=== PATIENT | male | born 1995 | race Caucasian/White ===

== ENCOUNTER 2022-12-23 16:00 | Emergency (ER) | payer SELFPAY ==
[2022-12-23 16:11] VITALS: BP 178/110; PULSE 82; RESP 17; TEMP 36.8; O2SAT 99; BMI 45.8
--- NOTE | 2022-12-23 16:11 | XRR_ITS ---
PROCEDURE INFORMATION: Exam: XR Chest Exam date and time: 12/23/2022 4:24 PM Age: 27 years old Clinical indication: Cough and dyspnea; Additional info: Dyspnea/cough TECHNIQUE: Imaging protocol: Radiologic exam of the chest. Views: 1 view. COMPARISON: CT abdomen pelvis w con* [id number] 02/05/2018 7:15 AM FINDINGS: Lungs: Unremarkable for portable technique. No consolidation. Pleural spaces: Unremarkable. No pleural effusion. No pneumothorax. Heart/Mediastinum: Unremarkable. No cardiomegaly. Bones/joints: Unremarkable for age. XR/XR chest 1V portable [id number] IMPRESSION: Negative portable chest.
--- NOTE | 2022-12-23 16:18 | ECG_ITS ---
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 Measurements Intervals [place] Rate: 76 P: 21 CO: 132 QRS: 5 QRSD: 97 T: 16 QT: 393 QTc: 444 Interpretive Statements SINUS RHYTHM LOW QRS VOLTAGE IN PRECORDIAL LEADS [QRS DEFLECTION < 1.0 mV IN CHEST LEADS] POSSIBLE RIGHT VENTRICULAR CONDUCTION DELAY [RSR (QR) IN V1/V2] No previous ECG available for comparison Electronically Signed On 12-23-2022 19:25:09 CDT by Jarad Siddiqui M.D. [id number]
[2022-12-23] MEDS: lidocaine 2% viscous 15 ML, aluminum-mag hydrox-simethicon 30 ML, sucralfate oral liq 1 GM PO (16:31)
[2022-12-23] MEDS: ondansetron 2 mg/ML SDV 2 mL 4 MG IVP (16:31)
[2022-12-23] MEDS: sodium chloride 0.9% 1,000 ML 999 ML IV (16:32)
[2022-12-23 16:34] LABS: Basophils # 0.1 10^3/uL (0.0-0.1); Basophils % 0.8 %; Eosinophils # 0.1 10^3/uL (0.0-0.8); Eosinophils % 0.6 %; Hematocrit 45.9 % (42.0-52.0); Hemoglobin 15.5 g/dL (11.7-16.6); Lymphocytes # 1.4 10^3/uL (0.8-4.8); Lymphocytes % 17.3 %; Mean Corpuscular HGB Conc 33.8 g/dL (30.0-36.0); Mean Corpuscular Hemoglobin 29.8 pg (28.0-34.0); Mean Corpuscular Volume 88.3 fl (80-94); Mean Platelet Volume 10.5 fL (7.4-10.4); Monocytes # 0.6 10^3/uL (0.2-0.9); Monocytes % 7.1 %; Neutrophils # 5.77 10^3/uL (1.8-7.7); Neutrophils % 73.7 %; Nucleated Red Blood Cells % 0 %; Platelet Count 230 10^3/cmm (130-400); Red Cell Distribution Width 13.9 % (12.1-15.1); White Blood Count 7.8 10^3/uL (4.0-10.0)
[2022-12-23 16:36] VITALS: BP 157/110; PULSE 85; O2SAT 98
--- NOTE | 2022-12-23 16:40 | W.ED.CHESTPA ---
HPI - Chest Pain General: Chief Complaint: Chest Pain Stated Complaint: tingling hands, chest pains Time Seen by Provider: 12/23/22 16:11 Source: patient Mode of arrival: ambulatory History of Present Illness: 27-year-old male presents emergency room states he was at work again not feeling well. Began about 4 hours ago progressively worsened throughout the day. He vomited a couple of times he has some chest and abdominal discomfort. Patient does admitting to very heavy drinking of hard liquor last night. No hematemesis or coffee-ground emesis. Denies dysuria urgency or frequency MD complaint: chest discomfort Onset (ago): hour(s) (4) Quality: aching Relieving factors: nothing Exacerbating factors: nothing Associated symptoms: Deny abdominal pain, diaphoresis, dyspnea, fever(s), leg edema, nausea, palpitations, sense of impending doom, syncope or vomiting Review of Systems Const: Denies: fever(s), chills, fatigue, malaise or diaphoresis Card: Denies: chest pain, palpitations, irregular heart rhythm, edema or syncope Resp: Denies: dyspnea GI: Denies: abdominal pain, nausea or vomiting : Denies: flank pain, dysuria, urinary frequency or urinary urgency Musc: Denies: neck pain or back pain Skin/Breast: Denies: rash or pruritus Physical Exam Const: GENERAL APPEARANCE: cooperative and comfortable ORIENTATION/CONSCIOUSNESS: Yes awake, Yes oriented to person, Yes oriented to place and Yes oriented to time HENMT: COMMON NORMALS: normocephalic, atraumatic and hearing grossly normal bilaterally HEAD & SCALP: normocephalic and atraumatic Resp: COMMON NORMALS: normal respiratory effort, No retractions, No use of accessory muscles and clear to auscultation bilaterally AUSCULTATION: clear to auscultation bilaterally Cardio: COMMON NORMALS: regular rate, regular rhythm and No murmurs present (Cardio) RATE: regular rate RHYTHM: regular rhythm GI: COMMON NORMALS: Soft to palpation and No hepatosplenomegaly present AUSCULTATION: Yes normoactive bowel sounds PALPATION: Yes Soft to palpation, No Tenderness to palpation present (GI), No Guarding due to palpation present (GI) and Yes No hepatosplenomegaly present Extremity: COMMON NORMALS: normal to inspection, capillary refill normal, no clubbing, cyanosis or edema, no calf tenderness and no pedal edema Neuro: SENSORIUM/ORIENTATION: Yes oriented to person, Yes oriented to place and Yes oriented to time Skin: COMMON NORMALS: no rashes or lesions noted GENERAL SKIN EXAM: no rashes or lesions noted Course Vital Signs: Vital signs: Vital Signs Temperature 98.2 F 12/23/22 16:11 Pulse Rate 85 12/23/22 16:36 Respiratory Rate 17 12/23/22 16:11 Blood Pressure 157/110 12/23/22 16:36 Pulse Oximetry 98 12/23/22 16:36 Oxygen Delivery Me thod Room Air 12/23/22 16:11 MDM - Chest Pain Medical Decision Making You are seen today for acute alcoholic gastritis. Recommend that you abstain from alcohol switch to pantoprazole 40 mg twice daily. Chest x-ray EKG and laboratory studies are unremarkable. Chest discomfort in the left upper chest appears to be related to chest wall discomfort. Medical Records I reviewed the patient's medical records. Lab Data I reviewed the patient's lab results. 12/23/22 16:27 12/23/22 16:27 Radiology Impressions Chest X-Ray 12/23/22 16:11 IMPRESSION: Negative portable chest. Laboratory Results WBC 7.8 10^3/uL (4.0-10.0) 12/23/22 16: RBC 5.20 10^6/uL (4.1-5.3) 12/23/22 16:27 Hgb 15.5 g/dL (11.7-16.6) 12/23/22 16:27 Hct 45.9 % (42.0-52.0) 12/23/22 16: MCV 88.3 fl (80-94) 12/23/22 16:27 MCH 29.8 pg (28.0-34.0) 12/23/22 16: MCHC 33.8 g/dL (30.0-36.0) 12/23/22 16: RDW 13.9 % (12.1-15.1) 12/23/22 16:27 Plt Count 230 10^3/cmm (130-400) 12/23/22 16: MPV 10.5 fL (7.4-10.4) H 12/23/22 16:27 Neut % (Auto) 73.7 % 12/23/22 16:27 Lymph % (Auto) 17.3 % 12/23/22 16:27 [place] % (Auto) 7.1 % 12/23/22 16: Eos % (Auto) 0.6 % 12/23/22 16: Baso % (Auto) 0.8 % 12/23/22 16:27 Neut # (Auto) 5.77 10^3/uL (1.8-7.7) 12/23/22 16: Lymph # (Auto) 1.4 10^3/uL (0.8-4.8) 12/23/22 16: [place] # (Auto) 0.6 10^3/uL (0.2-0.9) 12/23/22 16: Eos # (Auto) 0.1 10^3/uL (0.0-0.8) 12/23/22 16: Baso # (Auto) 0.1 10^3/uL (0.0-0.1) 12/23/22 16: Nucleated RBC % (auto) 0 % 12/23/22 16: Nucleated RBCs # 0.0 /100WBC 12/23/22 16:27 Sodium 136 mmol/L (136-145) 12/23/22 16: Potassium 4.0 mmol/L (3.5-5.1) 12/23/22 16: Chloride 100 mmol/L (98-107) 12/23/22 16: Carbon Dioxide 24 mmol/L (22-29) 12/23/22 16: Anion Gap 16.0 (5-19) 12/23/22 16:27 BUN 11 mg/dL (6-20) 12/23/22 16:27 Creatinine 1.0 mg/dL (0.7-1.2) 12/23/22 16:27 GFR Calculation 89.0 mL/min (90-130) L 12/23/22 16:27 Glucose 110 mg/dL (65-115) 12/23/22 16: Calculated Osmolality 282 mOsm/kg (285-295) L 12/23/22 16:27 Calcium 9.6 mg/dL (8.5-10.5) 12/23/22 16:27 Total Bilirubin 0.6 mg/dL (0.15-1.2) 12/23/22 16:27 AST 31 U/L (0-40) 12/23/22 16:27 ALT 38 U/L (0-41) 12/23/22 16:27 Alkaline Phosphatase 116 U/L (40-130) 12/23/22 16:27 Troponin T Baseline 8 ng/L (0-15) 12/23/22 16:27 Total Protein 7.3 g/dL (6.6-8.7) 12/23/22 16:27 Albumin 4.2 g/dL (3.5-5.2) 12/23/22 16:27 Globulin 3.1 g/dL (1.3-4.6) 12/23/22 16:27 Lipase 30 U/L (13-60) 12/23/22 16:27 Discharge Plan Discharge Patient Disposition: Home Clinical Impression: Alcoholic gastritis, Chest wall pain Condition: Stable Prescriptions: New pantoprazole 40 mg tablet,delayed release (DR/EC) 40 mg PO BID 14 Days Qty: 28 0RF Discharge Orders: Discharge ED (Routine); Ordered 12/23/22 Ordered By: Justin Brito Discharge Diet: As Directed Discharge Activity: Increase activity as tolerated Patient Instructions: Opioid Safety, Pain Management Activity Restrictions/Additional Instructions: Recommend abstaining from alcohol Coding Level of Care Code ED Planer Hand for Donna Quarles
[2022-12-23 16:54] LABS: Alanine Aminotransferase 38 U/L (0-41); Albumin Level 4.2 g/dL (3.5-5.2); Alkaline Phosphatase 116 U/L (40-130); Aspartate Amino Transferase 31 U/L (0-40); Blood Urea Nitrogen 11 mg/dL (6-20); Calcium 9.6 mg/dL (8.5-10.5); Carbon Dioxide 24 mmol/L (22-29); Chloride 100 mmol/L (98-107); Globulin 3.1 g/dL (1.3-4.6); Glucose 110 mg/dL (65-115); Lipase 30 U/L (13-60); Osmolality Calculated 282 mOsm/kg (285-295); Sodium 136 mmol/L (136-145); Total Bilirubin 0.6 mg/dL (0.15-1.2); Total Protein 7.3 g/dL (6.6-8.7)
[2022-12-23 17:16] LABS: Troponin(5th) Baseline 8 ng/L (0-15)
[2022-12-23 18:17] VITALS: BP 153/113; PULSE 85; O2SAT 98
--- NOTE | 2023-01-02 15:46 | DCPLANNER ---
TCM called patient due to no primary care physician - no answer at this time.
== END 2022-12-23 18:18 | disposition home or self-care (01) ==
PROVIDERS: Emergency Provider Family Medicine
DX: K29.20 Alcoholic gastritis without bleeding (principal); R07.89 Other chest pain
CPT/HCPCS: 71045; 80053; 83690; 84484; 85025; 93005; 96361; 96374; 99285; J2405; J7030

== ENCOUNTER 2023-04-29 20:42 | Emergency (ER) | payer SELFPAY ==
[2023-04-29 20:57] VITALS: BMI 45.7
[2023-04-29 20:58] VITALS: BP 156/102; PULSE 99; RESP 17; TEMP 36.6; O2SAT 97
--- NOTE | 2023-04-29 21:13 | W.ED.WOUNDLC ---
HPI - Wound/Laceration General: Chief Complaint: Wound/Laceration Stated Complaint: left hand injury Time Seen by Provider: 04/29/23 21:01 History of Present Illness: 27-year-old male patient comes in today with injury to the left thumb. Patient reports 2:00 this morning he was cutting some vegetables at home when he accidentally sliced his left thumb. Patient has a 5 cm laceration to the dorsal thumb that is Y-shaped. Patient had gone to his primary care office at 330 this afternoon and was referred to the ER for repair. Patient arrived in the emergency room tonight about 9:00. Wound was clean but macerated at the edges. Patient reports that his primary care office did update his tetanus. Review of Systems General: Reports: 10 or more systems reviewed and unremarkable except in HPI and below Skin/Breast: Reports: new lesions (Left thumb laceration) Physical Exam Const: COMMON NORMALS: alert HENMT: COMMON NORMALS: normocephalic HEAD & SCALP: normocephalic Neck/C-Spine: COMMON NORMALS: full ROM Resp: COMMON NORMALS: normal respiratory effort Cardio: COMMON NORMALS: regular rate RATE: regular rate Back/Pelvis: COMMON NORMALS: thoracic and lumbar spine normal to inspection Extremity: LEFT UPPER EXTREMITY: Yes hand & digits (Thumb laceration approximately 5 cm Y-shaped) Neuro: SENSORIUM/ORIENTATION: Yes alert Skin: TRAUMA: laceration (Left thumb) Y-shaped Procedures Laceration Laceration 1: Site: hand Side (If applicable): left Size (cm): 5 Description: irregular Depth: simple, single layer Local Anesthetic: lidocaine 1% and with epi Amount of anesthesia used (mL): 4 Pre-repair: wound explored and irrigated extensively Skin layer closed with: nylon Size (cm): 4-0 Number of sutures: 10 Course Vital Signs: Vital signs: Vital Signs Temperature 97.9 F 04/29/23 20:58 Pulse Rate 99 04/29/23 20:58 Respiratory Rate 17 04/29/23 20:58 Blood Pressure 156/102 04/29/23 20:58 Pulse Oximetry 97 04/29/23 20:58 Oxygen Delivery Me thod Room Air 04/29/23 20:58 MDM - Wound/Laceration Medical Decision Making 27-year-old male patient comes in today for complaints of due to left thumb. On exam patient has a 5 cm Y-shaped laceration to his thumb. Patient has normal range of motion of the thumb. Normal sensation and cap refill. Patient does report some mild numbness at the tip of the finger. Differential diagnosis includes but not limited to neurovascular injury, tendon injury, foreign body, fracture, laceration. No signs of severe injury or illnesses noted. No tendon injury or fracture was noted. No foreign body was noted. Wound was cleaned and approximated with a total of 10 sutures. Patient tolerated it well. Reviewed postprocedure care and instructions with patient. No radiology studies performed this visit Discharge Plan Discharge Patient Disposition: Home Clinical Impression: Laceration of thumb, left Qualifiers: Encounter type: initial encounter Damage to nail status: without damage Foreign body presence: without foreign body Qualified Code(s): S61.012A - Laceration without foreign body of left thumb without damage to nail, initial encounter Condition: Stable Prescriptions: New amoxicillin-pot clavulanate 875-125 mg tablet 1 tab PO BID Qty: 14 0RF No Action amlodipine 5 mg tablet 5 mg PO DAILY Qty: 30 0RF Discharge Orders: Discharge ED (Routine); Ordered 04/29/23 Ordered By: Danny Dickens Discharge Diet: Usual diet Discharge Activity: Increase activity as tolerated Patient Instructions: Laceration (ED) Activity Restrictions/Additional Instructions: Keep wound clean and dry. Change dressing as needed if becomes wet or soiled. It is important keep the wound as dry as possible for the first 48 hours. After that you can wash it gently with some mild soap and water and cover with dry dressing. Protect the wound from dirt and water. Follow-up with primary care in 1 week for recheck. Take antibiotic as directed. Return to ER for worsening symptoms such as increased redness and swelling, fever greater than 100.4, or new concerns. Coding Level of Care Code ED Staff Radiation Therapist for Donna Quarles
[2023-04-29] MEDS: amoxicillin-clav 875-125 mg Tablet 1 TAB PO (22:05)
--- NOTE | 2023-04-29 22:05 | PC.NURSE ---
PT WOUND CLEANED WITH 4 NS FLUSHES AND A 4 PACK OF GAUZE. OVER A BASIN. PT WOUND WAS WRAPPED WITH A SMALL TELFA AND COBAN. PT WAS GIVEN A LARGE TELFA AND THE REST OF THE COBAN TO CHANGE WITH.
== END 2023-04-29 22:08 | disposition home or self-care (01) ==
PROVIDERS: Emergency Provider Nurse Practitioner Family
DX: S61.012A Laceration without foreign body of left thumb without damage to nail, initial encounter (principal); W26.0XXA Contact with knife, initial encounter; Y93.G1 Activity, food preparation and clean up; Y92.000 Kitchen of unspecified non-institutional (private) residence as the place of occurrence of the external cause
CPT/HCPCS: 12002; 99283

== ENCOUNTER 2023-06-05 20:27 | Emergency (ER) | payer SELFPAY ==
[2023-06-05 20:29] VITALS: BP 168/107; PULSE 89; RESP 18; TEMP 36.6; O2SAT 99; BMI 45.7
--- NOTE | 2023-06-05 20:29 | ECG_ITS ---
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 Measurements Intervals [place] Rate: 84 P: 30 [place]: 140 QRS: -9 QRSD: 98 T: 26 QT: 354 QTc: 419 Interpretive Statements SINUS RHYTHM WITH OCCASIONAL VENTRICULAR PREMATURE COMPLEXES LOW QRS VOLTAGE IN PRECORDIAL LEADS [QRS DEFLECTION < 1.0 mV IN CHEST LEADS] INCOMPLETE RIGHT BUNDLE BRANCH BLOCK [90+ ms QRS DURATION, TERMINAL R IN V1/V2, 40+ ms S IN I/aVL/V4/V5/V6] Compared to ECG 12/23/2022 16:18:20 Ventricular premature complex(es) now present Incomplete right bundle-branch block now present Electronically Signed On 06-06-2023 6:24:00 CDT by Jarad Siddiqui M.D. [id number] f
--- NOTE | 2023-06-05 20:42 | W.ED.CHESTPA ---
HPI - Chest Pain General: Chief Complaint: Chest Pain Stated Complaint: chest pain Time Seen by Provider: 06/05/23 20:42 History of Present Illness: 28-year-old male presents to the emergency department stating he was using jumper cables to start his vehicle when he grabbed the second set of jumper cable clamps and felt a shock. He states that since then he has had some mild chest discomfort and intermittent lightheadedness. He denies nausea vomiting dizziness or lightheaded feeling. He denies shortness of breath. He states that his chest discomfort is a 1 out of 10 and unable to characterize. Review of Systems General: Reports: 10 or more systems reviewed and unremarkable except in HPI and below Card: Reports: chest pain Neuro: Reports: dizziness Physical Exam Const: COMMON NORMALS: no acute distress, patient oriented x3 and alert HENMT: COMMON NORMALS: normocephalic and atraumatic HEAD & SCALP: normocephalic and atraumatic Eye: COMMON NORMALS: Equal, round and reactive pupils present and EOMs intact bilaterally PUPIL: Yes Equal, round and reactive pupils present Neck/C-Spine: COMMON NORMALS: full ROM and supple Chest: COMMONS NORMALS: normal inspection of the chest and normal palpation of entire chest wall Resp: COMMON NORMALS: normal respiratory effort, No retractions and clear to auscultation bilaterally AUSCULTATION: clear to auscultation bilaterally Cardio: COMMON NORMALS: regular rate, regular rhythm, S1 normal heart sound present, S2 normal heart sound present and Peripheral pulses 2+ throughout RATE: regular rate RHYTHM: regular rhythm HEART SOUNDS: S1 normal heart sound present and S2 normal heart sound present PERIPHERAL PULSES: Peripheral pulses 2+ throughout GI: COMMON NORMALS: Normal to inspection, nondistended, normoactive bowel sounds present, Soft to palpation and non-tender PALPATION: Yes Soft to palpation Extremity: COMMON NORMALS: normal to inspection, full ROM and capillary refill normal Neuro: COMMON NORMALS: patient oriented x3, moves all extremities, no focal motor deficits, no sensory deficits noted and gait normal SENSORIUM/ORIENTATION: Yes alert Psych: COMMON NORMALS: mental status grossly normal, Normal thought process present and cooperative THOUGHT PROCESS: Normal thought process present Skin: COMMON NORMALS: no rashes or lesions noted and turgor normal GENERAL SKIN EXAM: no rashes or lesions noted and turgor normal Course Vital Signs: Vital signs: Vital Signs Temperature 97.9 F 06/05/23 20:29 Pulse Rate 89 06/05/23 20:29 Respiratory Rate 17 06/05/23 22:41 Blood Pressure 168/107 06/05/23 20:29 Pulse Oximetry 99 06/05/23 20:29 Oxygen Delivery Me thod Room Air 06/05/23 20:29 MDM - Chest Pain Medical Decision Making Physical exam completed and documented, I reviewed the patient's laboratory findings as well as a twelve-lead EKG and find no acute findings. I will discharge the patient home with recommended follow-up with his PCP. Medical Records I reviewed the patient's medical records. Lab Data I reviewed the patient's lab results. 06/05/23 20:54 06/05/23 20:54 Laboratory Results WBC 8.25 10^3/uL (3.29-11.43) 06/05/23 20:54 RBC 4.77 10^6/uL (3.85-5.65) 06/05/23 20:54 Hgb 15.60 g/dL (11.27-16.99) 06/05/23 20:54 Hct 45.5 % (37-53) 06/05/23 20:54 MCV 95.4 fl (82-101) 06/05/23 20:54 MCH 32.7 pg (27-33) 06/05/23 20:54 MCHC 34.3 g/dL (30-55) 06/05/23 20:54 RDW 14.0 % (12.1-15.1) 06/05/23 20:54 Plt Count 219 10^3/cmm (157-399) 06/05/23 20:54 MPV 10.3 fL (7.4-10.4) 06/05/23 20:54 Neut % (Auto) 71.0 % 06/05/23 20:54 Lymph % (Auto) 19.6 % 06/05/23 20:54 [place] % (Auto) 5.8 % 06/05/23 20:54 Eos % (Auto) 2.4 % 06/05/23 20:54 Baso % (Auto) 0.8 % 06/05/23 20:54 Neut # (Auto) 5.85 10^3/uL (1.8-7.7) 06/05/23 20:54 Lymph # (Auto) 1.6 10^3/uL (0.8-4.8) 06/05/23 20:54 [place] # (Auto) 0.5 10^3/uL (0.2-0.9) 06/05/23 20:54 Eos # (Auto) 0.2 10^3/uL (0.0-0.8) 06/05/23 20:54 Baso # (Auto) 0.1 10^3/uL (0.0-0.1) 06/05/23 20:54 Nucleated RBC % (auto) 0 % 06/05/23 20:54 Nucleated RBCs # 0.0 /100WBC 06/05/23 20:54 Sodium 138 mmol/L (136-145) 06/05/23 20:54 Potassium 4.4 mmol/L (3.5-5.1) 06/05/23 20:54 Chloride 105 mmol/L (98-107) 06/05/23 20:54 Carbon Dioxide 22 mmol/L (22-29) 06/05/23 20:54 Anion Gap 15.4 (5-19) 06/05/23 20:54 BUN 15 mg/dL (6-20) 06/05/23 20:54 Creatinine 0.9 mg/dL (0.7-1.2) 06/05/23 20:54 GFR Calculation 99.8 mL/min (90-130) 06/05/23 20:54 Glucose 121 mg/dL (65-115) H 06/05/23 20:54 Calculated Osmolality 288 mOsm/kg (285-295) 06/05/23 20:54 Calcium 9.2 mg/dL (8.5-10.5) 06/05/23 20:54 Total Bilirubin 0.4 mg/dL (0.15-1.2) 06/05/23 20:54 AST 102 U/L (0-40) H 06/05/23 20:54 ALT 135 U/L (0-41) H 06/05/23 20:54 Alkaline Phosphatase 122 U/L (40-130) 06/05/23 20:54 Troponin T Baseline 8 ng/L (0-15) 06/05/23 20:54 Total Protein 6.6 g/dL (6.6-8.7) 06/05/23 20:54 Albumin 4.2 g/dL (3.5-5.2) 06/05/23 20:54 Globulin 2.4 g/dL (1.3-4.6) 06/05/23 20:54 Lipase 41 U/L (13-60) 06/05/23 20:54 No radiology studies performed this visit Discharge Plan Discharge Patient Disposition: Home Clinical Impression: Atypical chest pain, Heart palpitations Condition: Stable Prescriptions: No Action amoxicillin-pot clavulanate 875-125 mg tablet 1 tab PO BID Qty: 14 0RF amlodipine 5 mg tablet 5 mg PO DAILY Qty: 30 0RF Discharge Orders: Discharge ED (Routine); Ordered 06/05/23 Ordered By: Bi Soriano Discharge Diet: Advance as tolerated Discharge Activity: Resume usual activity Patient Instructions: Heart Palpitations (ED) Activity Restrictions/Additional Instructions: Activity Restrictions/Additional Instructions: Thank you for choosing [facility] for your healthcare needs today. Please realize that you were seen in the Emergency Department and that we are providing you with an emergency medical screening exam and this may not be complete and all inclusive of all the testing and or medical work-up that you may need to determine your ailment or severity of your illness. It is very important that you follow-up as instructed with your Primary care provider or Specialist for additional evaluation and to discuss your medical treatment plan. You may return to the Emergency Department should you have concerns or if your condition changes or worsens in any way. Coding Level of Care Code ED Criminal Justice Department Chair for Donna Quarles
[2023-06-05 21:00] LABS: Basophils # 0.1 10^3/uL (0.0-0.1); Basophils % 0.8 %; Eosinophils # 0.2 10^3/uL (0.0-0.8); Eosinophils % 2.4 %; Hematocrit 45.5 % (37-53); Lymphocytes # 1.6 10^3/uL (0.8-4.8); Lymphocytes % 19.6 %; Mean Corpuscular HGB Conc 34.3 g/dL (30-55); Mean Corpuscular Hemoglobin 32.7 pg (27-33); Mean Corpuscular Volume 95.4 fl (82-101); Mean Platelet Volume 10.3 fL (7.4-10.4); Monocytes # 0.5 10^3/uL (0.2-0.9); Monocytes % 5.8 %; Neutrophils # 5.85 10^3/uL (1.8-7.7); Nucleated Red Blood Cells % 0 %; Platelet Count 219 10^3/cmm (157-399); Red Blood Count 4.77 10^6/uL (3.85-5.65); White Blood Count 8.25 10^3/uL (3.29-11.43)
[2023-06-05 21:19] LABS: Troponin(5th) Baseline 8 ng/L (0-15)
[2023-06-05 21:22] LABS: Alanine Aminotransferase 135 U/L (0-41); Albumin Level 4.2 g/dL (3.5-5.2); Alkaline Phosphatase 122 U/L (40-130); Anion Gap 15.4 (5-19); Aspartate Amino Transferase 102 U/L (0-40); Blood Urea Nitrogen 15 mg/dL (6-20); Calcium 9.2 mg/dL (8.5-10.5); Carbon Dioxide 22 mmol/L (22-29); Chloride 105 mmol/L (98-107); Globulin 2.4 g/dL (1.3-4.6); Glomerular Filtration Rate 99.8 mL/min (90-130); Glucose 121 mg/dL (65-115); Lipase 41 U/L (13-60); Osmolality Calculated 288 mOsm/kg (285-295); Potassium 4.4 mmol/L (3.5-5.1); Sodium 138 mmol/L (136-145); Total Bilirubin 0.4 mg/dL (0.15-1.2); Total Protein 6.6 g/dL (6.6-8.7)
[2023-06-05 22:41] VITALS: RESP 17
== END 2023-06-05 22:42 | disposition home or self-care (01) ==
PROVIDERS: Emergency Medicine; Emergency Provider Internal Medicine
DX: R07.89 Other chest pain (principal); R00.2 Palpitations
CPT/HCPCS: 36415; 80053; 83690; 84484; 85025; 93005; 99284